=== PATIENT | female | born 1970 | race Caucasian/White ===

== ENCOUNTER 2018-02-08 19:43 | Emergency (ER) | payer SELFPAY ==
[2018-02-08] MEDS ORDERED: ONDANSETRON ODT 8 MG TAB SL ONE (20:09)
[2018-02-08] MEDS ORDERED: IPRATROPIUM/ALBUTEROL 3 ML VIAL NEB ONE (20:09)
[2018-02-08] MEDS ORDERED: SODIUM CHLORIDE 0.9% 1000ML 1,000 ML IVS ONE ×2 (20:09→22:33)
[2018-02-08] MEDS ORDERED: PROMETHAZINE HCL INJ 25 MG in SODIUM CHLORIDE 0.9% 50ML 50 ML IVPB ONE (20:11)
[2018-02-08] MEDS ORDERED: PROMETHAZINE HCL INJ 25 MG/ML VIAL ONE (20:43)
[2018-02-08] MEDS ORDERED: SODIUM CHLORIDE 0.9% 50ML 50 ML ONE (20:44)
--- NOTE | 2018-02-08 21:03 | RAD ---
EXAM DESCRIPTION: Abdomen Series CLINICAL HISTORY: vomiting sob COMPARISON: None FINDINGS: Three view abdominal series including the chest was submitted. Lungs are clear and heart size normal. Multiple coils project over the midline. There is moderate stool in the colon. There is no free air in the abdomen. There is no evidence of bowel obstruction. IMPRESSION: Constipation. Electronically signed by: Shay Whittaker 02/08/2018 9:02 PM CDT
[2018-02-08] MEDS ORDERED: POTASSIUM CHLORIDE ELIXIR 20 MEQ/15 ML UD PO ONE (21:10)
[2018-02-08] MEDS ORDERED: PANTOPRAZOLE SODIUM IV 40 MG VIAL IV ONE (21:10)
[2018-02-08] MEDS ORDERED: SUCRALFATE 1 GM/10 ML 1 GM UD PO ONE (21:10)
[2018-02-08] MEDS ORDERED: methylPREDNISolone SODIUM SUC 40 MG/ML VIAL IV ONE (22:12)
[2018-02-08] MEDS ORDERED: SCOPOLAMINE PATCH 1.5MG 1 EA TD ONE (22:18)
--- NOTE | 2018-02-08 22:22 | ED.PDOC ---
History of Present Illness - General Chief Complaint: GI Problem Stated Complaint: nausea. vomiting x3-4 days, dizzy Time Seen by Provider: 02/08/18 19:46 Source: patient Exam Limitations: no limitations - History of Present Illness Initial Comments: The patient is a 47-year-old female presenting to the emergency room secondary to shortness of breath along with some nausea and vomiting for the last 3-5 days. The patient reports that the episode started around 5 days ago when she was using cleaning agents in a bathroom. She reported some burning in her lungs and has had some shortness of breath since then. She does smoke and has smoked significantly for many years. She does not know if she has any COPD. She does have a very mild increased work of breathing and scattered wheezes here today. No real abdominal pain just nausea. She does have some epigastric discomfort as well as some lower substernal discomfort particularly when she goes up. She has not been throwing up any blood or bile. She does have chronic constipation issues no diarrhea. No fever. No syncope or near syncope. Timing/Duration: unsure Severity: moderate Improving Factors: nothing Worsening Factors: eating Associated Symptoms: cough, shortness of breath Allergies/Adverse Reactions: Allergies Levofloxacin [From Levaquin] Allergy (Verified 02/08/18 20:02) Home Medications: Ambulatory Orders Famotidine 20 mg PO DAILY #30 tab 02/08/18 Ondansetron [Zofran Odt] 4 mg PO Q4H PRN #10 tab 02/08/18 Sucralfate Tab [Carafate Tab] 1 gm PO QID #120 tab 02/08/18 predniSONE [Prednisone] 20 mg PO DAILY #3 tab 02/08/18 Review of Systems - Review of Systems Constitutional: States: malaise EENTM: States: no symptoms reported Respiratory: States: cough, short of breath, wheezing Cardiology: States: see HPI Gastrointestinal/Abdominal: States: nausea, vomiting Genitourinary: States: no symptoms reported Musculoskeletal: States: no symptoms reported Skin: States: no symptoms reported Neurological: States: no symptoms reported Endocrine: States: no symptoms reported All other Systems: No Change from Baseline Past Medical History (General) - Patient Medical History Hx Asthma: No Hx Hypertension: No Hx Diabetes: No Hx Gastroesophageal Reflux: No Hx Renal Disease: No Surgical History: appendectomy, other - Vaccination History Hx Tetanus, Diphtheria Vaccination: No Hx Influenza Vaccination: No Hx Pneumococcal Vaccination: No - Social History Hx Tobacco Use: Yes Hx Alcohol Use: Yes - occ - Female History Patient is a Female of Child Bearing Age (10 -59 yrs old): Yes Patient : No - Triage Comment ED Triage Comment: pt began crying when asked to rate pain level, "it hurts a lot" rated 8/10. Family Medical History - Family History Mother Hx Family Hypertension: Yes Hx Cardiac Disease: Yes Hx Family Cancer: Yes Physical Exam - Physical Exam General Appearance: Alert, No apparent distress Eye Exam: bilateral normal Ears, Nose, Throat: hearing grossly normal, normal ENT inspection, normal pharynx Neck: full range of motion, supple Respiratory: no respiratory distress, accessory muscle use - ild, wheezing Cardiovascular/Chest: normal peripheral pulses, regular rate, rhythm, no edema Peripheral Pulses: radial,right: 2+, radial,left: 2+, dorsalis pedis,right: 2+, dorsalis pedis,left: 2+ Gastrointestinal/Abdominal: non tender, soft, other - no rebound or peritoneal signs. No point tenderness. No palpable mass. Rectal Exam: deferred Back Exam: no CVA tenderness, no vertebral tenderness Extremity: normal range of motion, non-tender, normal inspection, no pedal edema , normal capillary refill Neurologic: medical records tech II-XII nml as tested, alert, normal mood/affect, oriented x 3 Skin Exam: normal color Comments: Vital Signs - 24 hr 02/08/18 02/08/18 02/08/18 20:02 20:30 21:14 Temperature 98.5 F Pulse Rate 80 Pulse Rate [ 76 left] Respiratory 18 20 20 Rate Blood Pressure 102/31 [left] O2 Sat by Pulse 100 97 Oximetry 02/08/18 21:40 Temperature 98.5 F Pulse Rate 80 Pulse Rate [ 93 H left] Respiratory 20 Rate Blood Pressure 140/93 [left] O2 Sat by Pulse 98 Oximetry Progress - Progress Progress: 02/08/18 22:24 the patient's a 47-year-old female presenting to the emergency room with significant esophagitis and pneumonitis. The patient appears to have a chemical pneumonitis on top of what is likely some long-term COPD. She needs to not smoke for the next week. The patient will be placed on 3 days of oral prednisone for the pneumonitis. She'll also be written for an albuterol inhaler for as needed use for the shortness of breath. A DuoNeb treatment did help significantly here today. She is not hypoxic. The patient does have some significant gastritis and esophagitis. The patient is going to be written for famotidine, Carafate and Zofran. She does have some mild hypokalemia and was given a dose of oral potassium here today. She does need to have a potassium level rechecked in the next week. She needs to keep herself well hydrated. she received 2 L of IV fluid here today for dehydration. She needs to maintain a primarily liquid diet for the next 2-3 days and then she can advance her diet slowly first starting with a bland diet and small meals and then working her way up. ER warnings are given for any significant worsening. Laboratory work and x-ray were reassuring otherwise. She does have some constipation which she knows about. She can take MiraLAX on a daily basis for this as well but primarily she needs to keep herself well-hydrated. if she is doing well and she needs to follow up with her primary care doctor towards the middle of next week. If not then sooner or return here to the emergency room. - Results/Orders Results/Orders: Laboratory Tests 02/08/18 02/08/18 02/08/18 20:10 20:12 20:36 WBC RBC Hgb Hct MCV MCH MCHC RDW Plt Count MPV Absolute Neuts (auto) Absolute Lymphs (auto) Absolute Monos (auto) Absolute Eos (auto) Absolute Basos (auto) Neutrophils % Lymphocytes % Monocytes % Eosinophils % Basophils % D-Dimer, Quantitative Sodium 135 Potassium 3.0 L Chloride 101 Carbon Dioxide 27 Anion Gap 10.0 L BUN 21 H Creatinine 0.83 BUN/Creatinine Ratio 25.3 H Random Glucose 95 Serum Osmolality 272.9 L Calcium 8.9 Magnesium 1.8 Total Bilirubin 0.7 AST 16 ALT 13 Alkaline Phosphatase 62 Creatine Kinase 54 CK-MB (CK-2) 2.2 CK-MB (CK-2) % Not Reportable Troponin I 0.03 B-Natriuretic Peptide 6.2 Serum Total Protein 6.9 Albumin 3.7 Globulin 3.2 Albumin/Globulin Ratio 1.2 Amylase 43 Lipase 26 Urine Color Yellow Urine Appearance Clear Urine pH 6.5 Ur Specific [place] 1.015 Urine Protein Trace Urine Glucose (UA) Negative Urine Ketones Negative Urine Blood Large H Urine Nitrite Negative Urine Bilirubin Negative Urine Urobilinogen 0.2 Ur Leukocyte Esterase Negative Urine RBC 0 Urine WBC 1-3 Ur Epithelial Cells 1-3 Urine Bacteria 1+ Urine HCG, Qual Negative 02/08/18 02/08/18 20:36 20:36 WBC 9.9 RBC 4.61 Hgb 12.2 Hct 36.9 MCV 80.2 L MCH 26.4 L MCHC 33.0 RDW 15.6 H Plt Count 386 MPV 7.1 L Absolute Neuts (auto) 5.90 Absolute Lymphs (auto) 3.20 Absolute Monos (auto) 0.60 Absolute Eos (auto) 0.10 Absolute Basos (auto) 0.10 Neutrophils % 59.8 Lymphocytes % 31.9 Monocytes % 6.5 Eosinophils % 1.2 Basophils % 0.6 D-Dimer, Quantitative 284 H* Sodium Potassium Chloride Carbon Dioxide Anion Gap BUN Creatinine BUN/Creatinine Ratio Random Glucose Serum Osmolality Calcium Magnesium Total Bilirubin AST ALT Alkaline Phosphatase Creatine Kinase CK-MB (CK-2) CK-MB (CK-2) % Troponin I B-Natriuretic Peptide Serum Total Protein Albumin Globulin Albumin/Globulin Ratio Amylase Lipase Urine Color Urine Appearance Urine pH Ur Specific [place] Urine Protein Urine Glucose (UA) Urine Ketones Urine Blood Urine Nitrite Urine Bilirubin Urine Urobilinogen Ur Leukocyte Esterase Urine RBC Urine WBC Ur Epithelial Cells Urine Bacteria Urine HCG, Qual acute abdominal series shows significant constipation. No obvious large pneumonia. EKG shows normal sinus rhythm at a rate of 97 bpm. Very mild right axis deviation. No acute ST segment changes concerning for ischemia. Normal QT interval. Departure - Departure Clinical Impression: Esophagitis, Chemical pneumonitis, Hypokalemia, Dehydration Disposition: Discharge to Home or Self Care Condition: Fair Departure Forms: ED Discharge - Pt. Copy, Patient Portal Self Enrollment Instructions: DI for Gastroesophageal Reflux Disease (GERD), DI for Gastritis, DI for Hypokalemia, DI for Dehydration -- Adult Diet: regular diet Activity: increase activity as tolerated Prescriptions: Famotidine 20 mg PO DAILY #30 tab Ondansetron [Zofran Odt] 4 mg PO Q4H PRN #10 tab PRN Reason: Vomiting predniSONE [Prednisone] 20 mg PO DAILY #3 tab Sucralfate Tab [Carafate Tab] 1 gm PO QID #120 tab Home Medications: Ambulatory Orders Famotidine 20 mg PO DAILY #30 tab 02/08/18 Ondansetron [Zofran Odt] 4 mg PO Q4H PRN #10 tab 02/08/18 Sucralfate Tab [Carafate Tab] 1 gm PO QID #120 tab 02/08/18 predniSONE [Prednisone] 20 mg PO DAILY #3 tab 02/08/18 Additional Instructions: the patient's a 47-year-old female presenting to the emergency room with significant esophagitis and pneumonitis. The patient appears to have a chemical pneumonitis on top of what is likely some long-term COPD. She needs to not smoke for the next week. The patient will be placed on 3 days of oral prednisone for the pneumonitis. She'll also be written for an albuterol inhaler for as needed use for the shortness of breath. A DuoNeb treatment did help significantly here today. She is not hypoxic. The patient does have some significant gastritis and esophagitis. The patient is going to be written for famotidine, Carafate and Zofran. She does have some mild hypokalemia and was given a dose of oral potassium here today. She does need to have a potassium level rechecked in the next week. She needs to keep herself well hydrated. she received 2 L of IV fluid here today for dehydration. She needs to maintain a primarily liquid diet for the next 2-3 days and then she can advance her diet slowly first starting with a bland diet and small meals and then working her way up. ER warnings are given for any significant worsening. Laboratory work and x-ray were reassuring otherwise. She does have some constipation which she knows about. She can take MiraLAX on a daily basis for this as well but primarily she needs to keep herself well-hydrated. if she is doing well and she needs to follow up with her primary care doctor towards the middle of next week. If not then sooner or return here to the emergency room.
[2018-02-08 22:35] VITALS: O2SAT 99
[2018-02-08 23:56] VITALS: BP 125/47; TEMP 97.9
== END 2018-02-08 23:50 | disposition home or self-care (01) ==
LOC: ER 19:43
DX: T65.891A Toxic effect of other specified substances, accidental (unintentional), initial encounter (principal); J68.0 Bronchitis and pneumonitis due to chemicals, gases, fumes and vapors; E87.6 Hypokalemia; E86.0 Dehydration; K20.9 Esophagitis, unspecified; F17.200 Nicotine dependence, unspecified, uncomplicated
CPT/HCPCS: 36415; 74019; 80053; 81001; 81025; 82150; 82550; 82553; 83690; 83735; 83880; 84484; 85025; 85379; 93005; 94640; A4216; J1030; J2550; J7030; J7620